=== PATIENT | male | born 1955 | race African-American/Black ===

== ENCOUNTER → 2021-02-12 09:19 | Outpatient (CLI) | payer MEDICARE, MEDICAID, SELFPAY ==
[2021-02-12 11:11] LABS: COVID19 -Nasal RAPID Negative (Negative)
== END ==
PROVIDERS: Family Provider Nurse Practitioner Family; PCP Nurse Practitioner Family; Referring Provider Specialist; Visit Provider Specialist
DX: Z01.812 Encounter for preprocedural laboratory examination (principal); Z20.822 Contact with and (suspected) exposure to COVID-19
CPT/HCPCS: 87635; C9803

== ENCOUNTER 2021-02-13 08:06 | Day surgery (SDC) | payer MEDICARE, MEDICAID, SELFPAY ==
--- NOTE | 2021-02-13 | PATH_ITS ---
[facility] Accession Number: [id number] . 01 Material submitted: . colon - POLYP AT 25CM . 02 Diagnosis: Polyp at 27 cm: Tubular adenoma. MRV 02/18/2021 1157 Local . 02 Electronically signed: . Elizabeth Parmar MD, Pathologist NPI- [id number] . 01 Gross description: . POLYP AT 25CM: Received in formalin is 1 fragment(s) of anderson, soft tissue measuring 0.9 x 0.5 x 0.4 cm submitted entirely in 1 cassette(s) /WENDY 02/14/2021 0453 Local . 02 Pathologist provided ICD-10: K63.5, Z12.11, Z86.010 . 02 CPT . 712605 Performed at: 01 [facility] [address] [id number] MD Luciano Robertson MD Phone: [phone] Performed at: 02 [facility] [place] [address] [place], [place] [id number] MD Ember Casillas MD Phone: [phone]
[2021-02-13 08:20] VITALS: BP 136/76; PULSE 81; RESP 16; TEMP 36.9; O2SAT 99; BMI 24.3
[2021-02-13] MEDS: LACTATED RINGERS 1,000 ML 42 ML IV (08:39)
--- NOTE | 2021-02-13 09:44 | P.HP_ITS ---
History of Present Illness History of Present Illness Chief complaint[place] [facility] [place]: The patient is a gentleman who had a colonoscopy 6 years ago where polyps were found. He is here for screening exam. He is otherwise healthy except for elevated cholesterol Patient History Medical History Colon polyps Family & Social History Social History: household members none Tobacco & Substance use: Smoking Status Never smoker alcohol intake frequency 0-2 drinks per day Substance Use Type marijuana Meds Home Medications and Allergies Home Medications Medication Instructions Recorded Confirmed Type atorvastatin 20 mg tablet mg 02/13/21 History Allergies Allergy/AdvReac Type Severity Reaction Status Date / Time No Known Drug Allergies Allergy Verified 02/13/21 08:18 Review of Systems Review of Systems Narrative: Essentially healthy. No prior operations. No heart or breathing issues. No abdominal problems. Exam Vital Signs (past 8 hours): - 02/13/21 08:20 Temperature 98.4 F Pulse Rate 81 Respiratory Rate 16 Blood Pressure 136/76 Pulse Oximetry 99 Oxygen Delivery Method Room Air Narrative Exam Narrative: Pleasant cooperative patient no apparent distress. Lungs are clear to auscultation. No rales or rhonchi. Heart regular rate and rhythm no murmur gallop. Abdomen is soft nontender without mass. No obvious hernias. Patient is alert and oriented x3. Assessment & Plan Assessment and plan (1) Screening for malignant neoplasm of colon: Status: Acute Assessment & Plan narrative: Patient here for screening colonoscopy. I have discussed the procedure and the rationale with the patient including risks of bleeding, perforation which would necessitate a major operation, failure to find remove all lesions and the potential to tattoo. He appeared to understand and wished to proceed. Time Spent With Patient Critical Care time: I spent a total of [] minutes of critical care time on this patient's care today; this time is exclusive of procedural time.
--- NOTE | 2021-02-13 09:46 | PM.PREOP ---
Pre-operative Note COVID-19 COVID-19 status: Negative Result date/Date tested (Pos, Neg/Pending): 02/12/21 Interval Note History & Physical reviewed/Exam performed by Physician: Yes Changes to H&P: No ASA Class (for procedural sedation): I
--- NOTE | 2021-02-13 10:20 | PM.OP.COLON ---
Operative Date/Time/Diagnoses Date of procedure: 02/13/21 Time of procedure: :21 Pre-op diagnosis: Screening exam. Personal history of polyps. Last exam 6 years ago. Post-op diagnosis: same (Rare diverticulum sigmoid colon. Polyp snared and removed at 25 cm from the anal verge.) Procedure & Clinicians Study performed: Colonoscopy with hot snare polypectomy Same procedure as scheduled: Yes Indications: Screening exam Surgeon: Nikolay Erwin Procedure Notes SCOAP/Timeout: Performed Procedure in detail: The patient was placed in the left lateral decubitus position and underwent IV sedation directed by the surgeon consisting of fentanyl and Versed. Digital exam was unremarkable. Prostate normal in size. The scope was inserted and advanced through the rectum into the sigmoid, descending, transverse, and ascending colon. Stiffener was inserted and pressure applied in order to reach the cecum. The cecum was reached identified by the ileocecal valve and the appendiceal opening. The ileocecal valve was successfully cannulated. The terminal ileum was normal in appearance. The scope was gradually brought out. OnePolyps were found at 25 cm from the anal verge. This was removed with a hot snare and appeared to be completely removed. The scope ultimately was retroflexed in the rectum. The appearance was normal except for some minor scarring The scope was removed and the patient tolerated the procedure well. Prep was good. Scope withdrawal time: 8 minutes (12 and half total) Sedation minutes: 30 Findings: divertiulosis and polyp(s) (1 polyp at 25 cm from the anal verge.) Specimen(s): other (Polyp) Complications: none Post-procedure Recommendations: Colonoscopy in 5 years Follow up: as needed Disposition: PACU
[2021-02-13 10:23] VITALS: BP 134/69; PULSE 86; RESP 17; TEMP 36.4; O2SAT 98
[2021-02-13] MEDS: fentaNYL 250 MCG/5 ML INJ IV (10:23)
[2021-02-13] MEDS: MIDAZOLAM 5 MG/5 ML VIAL IV (10:23)
[2021-02-13 10:28] VITALS: BP 128/76; PULSE 95; RESP 16; O2SAT 98
[2021-02-13 10:34] VITALS: BP 135/83; PULSE 86; RESP 18; O2SAT 98
== END 2021-02-13 11:00 | disposition home or self-care (01) ==
PROVIDERS: Family Provider Nurse Practitioner Family; PCP Nurse Practitioner Family; Referring Provider Specialist; Visit Provider Specialist
PROC: 0DJD8ZZ Inspection of Lower Intestinal Tract, Via Natural or Artificial Opening Endoscopic (ICD-10-PCS; CPT 45378; principal; 2021-02-13 09:15)
DX: Z12.11 Encounter for screening for malignant neoplasm of colon (principal); Z86.010 Personal history of colon polyps; K57.30 Diverticulosis of large intestine without perforation or abscess without bleeding; D12.6 Benign neoplasm of colon, unspecified
CPT/HCPCS: 45385; 99152; 99153; J2250; J3010